=== PATIENT | female | born 1960 | race Hispanic/Latino ===

== ENCOUNTER 2018-06-19 21:13 | Inpatient (IN) | payer MEDICAID, OTHER ==
[2018-06-19 21:42] LABS: Basophils % (Auto) 0.6 % (0.0-1.8); Eosinophils # (Auto) 0.1 K/mm3 (0.0-0.4); Eosinophils % (Auto) 0.8 % (0.0-4.3); Hematocrit 38.8 % (30.3-42.9); Lymphocytes # (Auto) 1.2 K/mm3 (1.2-5.4); Lymphocytes % (Auto) 19.5 % (13.4-35.0); Mean Corpuscular HGB Conc 34 % (30-34); Mean Corpuscular Volume 93 fl (79-97); Monocytes # (Auto) 0.6 K/mm3 (0.0-0.8); Monocytes % (Auto) 9.3 % (0.0-7.3); Platelet Count 199 K/mm3 (140-440); Red Blood Count 4.19 M/mm3 (3.65-5.03); Red Cell Distribution Width 15.2 % (13.2-15.2)
--- NOTE | 2018-06-19 22:13 | Emergency Department Report ---
ED Altered Mental Status HPI - General Chief Complaint: Altered Mental Status Stated Complaint: SYNCOPE Time Seen by Provider: 06/19/18 21:50 Source: patient, EMS Mode of arrival: Stretcher Limitations: Altered Mental Status - History of Present Illness Initial Comments: Mrs. Gong is a 57-year-old female with history of anxiety, MDD, Crohn's di sease, gastroparesis, osteoporosis, COPD, GERD, recurrent UTI and seizure who presents with altered mental status for several weeks. According to patient she falls randomly. She is having trouble recognizing persons. She is able to give a full hx. explained that she has black out spells in addition to seizure. I personally spoke with Dr. Ramirez physician at [facility]. She informed me that she was going to send Ms. Gong via EMS to our ED. In addition to seizures, Mrs. Gong also has a history of chronic migraine headache. She takes Keppra and Depakote. She has had several seizures this week. According to Dr. Ramirez, family members were very upset insisting on stat EEG. Dr. Ramirez was unable to obtain a clear history from the patient due to commotion. Dr. Ramirez desired CT head, at the minimum, to rule out intracranial hemorrhage with history of altered mental status and seizures. Medications include Tramadol Golytely Zofran MiraLAX Amlodipine Ditropan Valproic acid Keppra Tylenol Chantix Wellbutrin Flexeril Benadryl Hydrochlorothiazide Hydroxyzine Levothyroxine Lisinopril Metformin Singulair Prednisone Complaint: altered mental status, confusion -: Gradual, week(s) (several) Severity: moderate Consistency of Symptoms: waxing and waning, getting worse Context: other (frequent falls and seizures) - Related Data Allergies Allergy/AdvReac Type Severity Reaction Status Date / Time No Known Allergies Allergy Unverified 06/19/18 21:19 ED Review of Systems ROS: Stated complaint: SYNCOPE Other details as noted in HPI Comment: All other systems reviewed and negative Constitutional: malaise Respiratory: denies: cough Cardiovascular: denies: chest pain ED Past Medical Hx - Past Medical History Previous Medical History?: Yes Hx Heart Attack/AMI: Yes Hx GERD: Yes Hx Renal Disease: Yes (Recurrent UTI, Renal Calculi) Hx Seizures: Yes Hx Psychiatric Treatment: Yes (Anxiety, Major Depressive Disorder) Hx COPD: Yes Additional medical history: Crohns disease, VIT D def., Atherosclerosis of Aorta, Gastroparesis, Peripheral Neuropathy, Osteoporosis, hyperoxaluria, Bilateral Glaucoma, Hypokalemia, Breats CA w/ radiation andchemo therapy (2014), Aspiartion pneumonia - Surgical History Past Surgical History?: Yes Hx Cholecystectomy: Yes Additional Surgical History: Right arm, Hysterectomy, Lumpectomy Right breast (2014), Jejunostomy, Gastrostomy - Social History Smoking Status: Never Smoker Substance Use Type: None ED Physical Exam - General Limitations: Altered Mental Status General appearance: alert, in no apparent distress - Head Head exam: Present: atraumatic, normocephalic - Eye Eye exam: Present: normal appearance - ENT ENT exam: Present: mucous membranes moist - Neck Neck exam: Present: normal inspection, full ROM. Absent: tenderness, meningismus - Respiratory Respiratory exam: Present: normal lung sounds bilaterally. Absent: respiratory distress, wheezes, rales, rhonchi - Cardiovascular Cardiovascular Exam: Present: regular rate, normal rhythm, normal heart sounds. Absent: systolic murmur, diastolic murmur, rubs, gallop - GI/Abdominal GI/Abdominal exam: Present: soft, normal bowel sounds. Absent: distended, tenderness, guarding, rebound - Extremities Exam Extremities exam: Present: normal inspection - Back Exam Back exam: Present: normal inspection - Neurological Exam Neurological exam: Present: alert, oriented X3 - Psychiatric Psychiatric exam: Present: normal affect, normal mood - Skin Skin exam: Present: warm, dry, intact, normal color. Absent: rash ED Course Vital Signs 06/19/18 06/19/18 21:13 21:28 Temperature 98.8 F 98.7 F Pulse Rate 85 87 Respiratory 12 12 Rate Blood Pressure 122/58 122/58 [Left] O2 Sat by Pulse 96 95 Oximetry - Lab Data Result diagrams: 06/19/18 21:35 06/19/18 21:35 Lab Results 06/19/18 06/19/18 06/19/18 Range/Units 21:35 21:35 21:35 WBC 6.2 (4.5-11.0) K/mm3 RBC 4.19 (3.65-5.03) M/mm3 Hgb 13.0 (10.1-14.3) gm/dl Hct 38.8 (30.3-42.9) % MCV 93 (79-97) fl MCH 31 (28-32) pg MCHC 34 (30-34) % RDW 15.2 (13.2-15.2) % Plt Count 199 (140-440) K/mm3 Lymph % (Auto) 19.5 (13.4-35.0) % [place] % (Auto) 9.3 H (0.0-7.3) % Eos % (Auto) 0.8 (0.0-4.3) % Baso % (Auto) 0.6 (0.0-1.8) % Lymph # 1.2 (1.2-5.4) K/mm3 [place] # 0.6 (0.0-0.8) K/mm3 Eos # 0.1 (0.0-0.4) K/mm3 Baso # 0.0 (0.0-0.1) K/mm3 Seg Neutrophils % 69.8 (40.0-70.0) % Seg Neutrophils # 4.3 (1.8-7.7) K/mm3 Sodium 144 (137-145) mmol/L Potassium 3.7 (3.6-5.0) mmol/L Chloride 101.7 (98-107) mmol/L Carbon Dioxide 31 H (22-30) mmol/L Anion Gap 15 mmol/L BUN 14 (7-17) mg/dL Creatinine 0.5 L (0.7-1.2) mg/dL Estimated GFR > 60 ml/min BUN/Creatinine Ratio 28 % Glucose 89 (65-100) mg/dL Calcium 8.5 (8.4-10.2) mg/dL Total Bilirubin 0.20 (0.1-1.2) mg/dL AST 31 (5-40) units/L ALT 14 (7-56) units/L Alkaline Phosphatase 99 (35-129) units/L Ammonia (25-60) umol/L Total Protein 7.2 (6.3-8.2) g/dL Albumin 3.4 L (3.9-5) g/dL Albumin/Globulin Ratio 0.9 % TSH 8.250 H (0.270-4.200) mlU/mL Valproic Acid (50-100) ug/mL Plasma/Serum Alcohol (0-0.07) % 06/19/18 06/19/18 06/19/18 Range/Units 21:35 22:55 22:55 WBC (4.5-11.0) K/mm3 RBC (3.65-5.03) M/mm3 Hgb (10.1-14.3) gm/dl Hct (30.3-42.9) % MCV (79-97) fl MCH (28-32) pg MCHC (30-34) % RDW (13.2-15.2) % Plt Count (140-440) K/mm3 Lymph % (Auto) (13.4-35.0) % [place] % (Auto) (0.0-7.3) % Eos % (Auto) (0.0-4.3) % Baso % (Auto) (0.0-1.8) % Lymph # (1.2-5.4) K/mm3 [place] # (0.0-0.8) K/mm3 Eos # (0.0-0.4) K/mm3 Baso # (0.0-0.1) K/mm3 Seg Neutrophils % (40.0-70.0) % Seg Neutrophils # (1.8-7.7) K/mm3 Sodium (137-145) mmol/L Potassium (3.6-5.0) mmol/L Chloride (98-107) mmol/L Carbon Dioxide (22-30) mmol/L Anion Gap mmol/L BUN (7-17) mg/dL Creatinine (0.7-1.2) mg/dL Estimated GFR ml/min BUN/Creatinine Ratio % Glucose (65-100) mg/dL Calcium (8.4-10.2) mg/dL Total Bilirubin (0.1-1.2) mg/dL AST (5-40) units/L ALT (7-56) units/L Alkaline Phosphatase (35-129) units/L Ammonia 44.0 (25-60) umol/L Total Protein (6.3-8.2) g/dL Albumin (3.9-5) g/dL Albumin/Globulin Ratio % TSH (0.270-4.200) mlU/mL Valproic Acid 84.4 (50-100) ug/mL Plasma/Serum Alcohol 0.05 (0-0.07) % - EKG Data -: EKG Interpreted by Ut EKG shows normal: sinus rhythm, axis, intervals, QRS complexes, ST-T waves Rate: normal - Medical Decision Making Mrs. Gong presents with altered mental status and confusion for 2 weeks. Suspect polypharmacy and recurrent seizures as cause. and son are unable to care for her at home. Ms. Gong was insightful and cooperative. She does not appear altered. I do suspect intermittent delirium due to medication. She does appear frail. Family members state that she is unable to walk without assistance. I spoke extensively with [place] physician Dr. Flanagan. He recommended admission to our facility for further evaluation. He did note that TSH was within normal limits just last year. Elevated TSH is a change from her baseline. Dr. Reyes accepted patient to hospitalist service telemetry Critical Care Time: Yes (40) Critical care attestation.: If time is entered above; I have spent that time in minutes in the direct care of this critically ill patient, excluding procedure time. 40 minutes of critical care time excluding procedures were used in the care of the patient. Patient required multiple assessments and interventions. Spoke extensively with family members. I reviewed the electronic medical record. I spoke with consultants involved in the care of the patient. ED Disposition Clinical Impression: Acute encephalopathy, Recurrent seizures, Elevated TSH Disposition: OP ADMIT IP TO THIS HOSP Is pt being admited?: Yes Does the pt Need Aspirin: No Condition: Stable
[2018-06-19 22:15] LABS: Alanine Aminotransferase 14 units/L (7-56); Albumin 3.4 g/dL (3.9-5); BUN/Creatinine Ratio 28; Blood Urea Nitrogen 14 mg/dL (7-17); Calcium 8.5 mg/dL (8.4-10.2); Hemolysis Index 10
--- NOTE | 2018-06-19 22:51 | Cat Scan Report ---
FINAL REPORT EXAM: CT HEAD/BRAIN WO CON HISTORY: altered mental status TECHNIQUE: Contiguous axial images of the head were obtained without the use of intravenous contrast . PRIORS: None. FINDINGS: The cerebral hemispheres are without focal lesions. There is no evidence of acute infarct or intracra nial hemorrhage. There is no mass lesion or mass effect. There are no abnormal extra-axial fluid col lections. The ventricles and sulci are prominent consistent with generalized loss of brain substance, greater than expected for age. There is deep white matter lucency consistent with a mild degree of c hronic microvascular ischemic disease. The visualized skull and orbits are unremarkable. There is mil d mucosal thickening in the left sphenoid sinus. IMPRESSION: 1. No evidence of acute infarct or intracranial hemorrhage. 2. White matter lucency consistent with a mild degree of chronic microvascular ischemic disease. 3. Generalized loss of brain substance, greater than expected for age.
[2018-06-19] MEDS ORDERED: KEPPRA PO ONE (23:40)
--- NOTE | 2018-06-20 01:38 | XRay Report ---
FINAL REPORT EXAM: XR CHEST 1V AP HISTORY: dyspnea TECHNIQUE: AP portable view of the chest. PRIORS: None. FINDINGS: The cardiomediastinal silhouette appears normal. The lungs are clear. The bones and soft tissues are unremarkable. IMPRESSION: No evidence of acute cardiopulmonary disease.
[2018-06-20] MEDS ORDERED: ZOFRAN IV PRN (05:16)
[2018-06-20] MEDS ORDERED: SODIUM CHLORIDE FLUSH SYRINGE 10 ML IV PRN (05:16)
--- NOTE | 2018-06-20 05:47 | History and Physical Report ---
History of Present Illness Date of examination: 06/20/18 Date of admission: 06/20/18 01:10 Chief complaint: Generalized weakness History of present illness: Pt is a 57 year old female with PMHx of seizure, crohn's disease, s/p pegtube placement, COPD, CHANEL, GERD who was brought to the ER by EMS for altered level of consciousness.Pt's was sent to the ER by her and son who are her caregiver at home, according to the nurse, pt has been remaining in bed for the pas 7 days, she uses a tube feeding and a Jtube for her nutrition. Pt was seen in room, she is alert and orientated x4, able to provide her medical history, she states that she has been feeling weak for a few days and had not been able to get out of bed. Pt also states that she has diagnosed with 3 broken back disc and had not been able to walk for at least 3 years. pt c/o back pain and weakne ss, reports photophobia, headache, back pain, inability to ambulates due to back pain, she denies any fever, denies nausea, denies vomiting, denies stomach pain, denies change in appetite. Pt is admitted for evaluation by physical therapy for mobility, nutrition consult will be requested for continuation of peg-tube feeding as per home. Past History Past Medical History: arthritis, hypertension, hypothyroidism, seizures Past Surgical History: bowel surgery Social history: lives with family, smoking Family history: no significant family history Medications and Allergies Allergies Allergy/AdvReac Type Severity Reaction Status Date / Time No Known Allergies Allergy Verified 06/20/18 05:34 Home Medications Medication Instructions Recorded Confirmed Last Taken Type Acetaminophen [Mapap] 500 mg PO DAILY PRN 06/20/18 06/20/18 Unknown History Bupropion HCl [Bupropion HCl Sr] 150 mg PO DAILY 06/20/18 06/20/18 Unknown History Cyclobenzaprine [Flexeril 10 MG 10 mg PO TID 06/20/18 06/20/18 Unknown History TAB] Levothyroxine [Synthroid] 100 mcg PO QAM 06/20/18 06/20/18 Unknown History Lisinopril [Zestril] 20 mg PO DAILY 06/20/18 06/20/18 Unknown History Montelukast [Singulair] 10 mg pe PO DAILY 06/20/18 06/20/18 Unknown History diphenhydrAMINE [Benadryl CAP] 25 mg PO Q6HR PRN 06/20/18 06/20/18 Unknown History hydrOXYzine HCl [Hydroxyzine HCl] 25 mg PO Q4HR PRN 06/20/18 06/20/18 Unknown History hydroCHLOROthiazide 12.5 mg PO DAILY 06/20/18 06/20/18 Unknown History [Hydrochlorothiazide] metFORMIN [Glucophage] 500 mg PO QDAY 06/20/18 06/20/18 Unknown History methylPREDNISolone [Medrol] 4 mg PO DAILY 06/20/18 06/20/18 Unknown History predniSONE [Deltasone] 20 mg PO BID 06/20/18 06/20/18 Unknown History Active Meds: Active Medications Acetaminophen (Tylenol) 650 mg PO Q4H PRN PRN Reason: Pain MILD(1-3)/Fever >100.5/ROQUE Docusate Sodium (Colace) 100 mg PO BID BOB Famotidine (Pepcid) 20 mg IV BID BOB Dextrose/Sodium Chloride (D5/0.45ns) 1,000 mls @ 75 mls/hr IV DIRECT BOB Ondansetron HCl (Zofran) 4 mg IV Q8H PRN PRN Reason: Nausea And Vomiting Sodium Chloride (Sodium Chloride Flush Syringe 10 Ml) 10 ml IV BID BOB Sodium Chloride (Sodium Chloride Flush Syringe 10 Ml) 10 ml IV PRN PRN PRN Reason: LINE FLUSH Review of Systems Breasts: normal Respiratory: sleep apnea Musculoskeletal: low back pain Neurological: weakness, headaches, migraines Psychiatric: anxiety, depression Exam - Constitutional Vitals: Temp Pulse Resp BP Pulse Ox 98.7 F 84 9 L 113/61 90 06/19/18 21:28 06/20/18 02:00 06/20/18 02:00 06/20/18 02:00 06/20/18 02:00 General appearance: Present: no acute distress - EENT Eyes: Present: EOM intact ENT: hearing intact - Neck Neck: Present: normal ROM - Respiratory Respiratory effort: normal Respiratory: bilateral: CTA - Cardiovascular Rhythm: regular - Extremities Extremities: no ischemia, No edema Peripheral Pulses: within normal limits - Abdominal General gastrointestinal: Present: soft, non-tender, non-distended Female genitourinary: Present: deferred - Rectal Rectal Exam: deferred - Integumentary Integumentary: Present: warm, dry - Musculoskeletal Musculoskeletal: strength equal bilaterally - Psychiatric Psychiatric: appropriate mood/affect, cooperative, depressed - Neurologic Neurologic: moves all extremities, other (unable to assess) Results - Labs CBC & Chem 7: 06/19/18 21:35 06/19/18 21:35 Labs: Laboratory Last Values WBC 6.2 K/mm3 (4.5-11.0) 06/19/18 21:35 RBC 4.19 M/mm3 (3.65-5.03) 06/19/18 21:35 Hgb 13.0 gm/dl (10.1-14.3) 06/19/18 21:35 Hct 38.8 % (30.3-42.9) 06/19/18 21:35 MCV 93 fl (79-97) 06/19/18 21:35 MCH 31 pg (28-32) 06/19/18 21:35 MCHC 34 % (30-34) 06/19/18 21:35 RDW 15.2 % (13.2-15.2) 06/19/18 21:35 Plt Count 199 K/mm3 (140-440) 06/19/18 21:35 Lymph % (Auto) 19.5 % (13.4-35.0) 06/19/18 21:35 [place] % (Auto) 9.3 % (0.0-7.3) H 06/19/18 21:35 Eos % (Auto) 0.8 % (0.0-4.3) 06/19/18 21:35 Baso % (Auto) 0.6 % (0.0-1.8) 06/19/18 21:35 Lymph # 1.2 K/mm3 (1.2-5.4) 06/19/18 21:35 [place] # 0.6 K/mm3 (0.0-0.8) 06/19/18 21:35 Eos # 0.1 K/mm3 (0.0-0.4) 06/19/18 21:35 Baso # 0.0 K/mm3 (0.0-0.1) 06/19/18 21:35 Seg Neutrophils % 69.8 % (40.0-70.0) 06/19/18 21:35 Seg Neutrophils # 4.3 K/mm3 (1.8-7.7) 06/19/18 21:35 Sodium 144 mmol/L (137-145) 06/19/18 21:35 Potassium 3.7 mmol/L (3.6-5.0) 06/19/18 21:35 Chloride 101.7 mmol/L (98-107) 06/19/18 21:35 Carbon Dioxide 31 mmol/L (22-30) H 06/19/18 21:35 Anion Gap 15 mmol/L 06/19/18 21:35 BUN 14 mg/dL (7-17) 06/19/18 21:35 Creatinine 0.5 mg/dL (0.7-1.2) L 06/19/18 21:35 Estimated GFR > 60 ml/min 06/19/18 21:35 BUN/Creatinine Ratio 28 % 06/19/18 21:35 Glucose 89 mg/dL (65-100) 06/19/18 21:35 Calcium 8.5 mg/dL (8.4-10.2) 06/19/18 21:35 Total Bilirubin 0.20 mg/dL (0.1-1.2) 06/19/18 21:35 AST 31 units/L (5-40) 06/19/18 21:35 ALT 14 units/L (7-56) 06/19/18 21:35 Alkaline Phosphatase 99 units/L (35-129) 06/19/18 21:35 Ammonia 44.0 umol/L (25-60) 06/19/18 22:55 Total Protein 7.2 g/dL (6.3-8.2) 06/19/18 21:35 Albumin 3.4 g/dL (3.9-5) L 06/19/18 21:35 Albumin/Globulin Ratio 0.9 % 06/19/18 21:35 TSH 8.250 mlU/mL (0.270-4.200) H 06/19/18 21:35 Valproic Acid 84.4 ug/mL (50-100) 06/19/18 22:55 Plasma/Serum Alcohol 0.05 % (0-0.07) 06/19/18 21:35 Assessment and Plan Assessment and plan: 1. Generalized weakness 2. Migraine headache with photophobia 3. Crohn's disease (s/p pegtube/Jtube) 4. COPD stable (cigarette smoking) 5. Chronic back pain 6. Osteoarthritis 7. Debilitating/gait instability 8. Depression/anxiety 9. GERD (On PPI) 10. CHANEL Plan: Pt is admitted for gait instability Consult PT to eval and treat Consult nutrition to eval for peg tube feeding Resume home meds Consult case management for DC to home of SNF DVT prophylaxis with lovenox Further plan per hospital course Advance Directives: Yes VTE prophylaxis?: Chemical
[2018-06-20] MEDS: D5/0.45NS 1,000 ML IV SCH ×2 (05:56→19:08)
[2018-06-20] MEDS ORDERED: SIMPLE SYRUP FEEDTUBE PRN ×2 (09:26)
[2018-06-20] MEDS ORDERED: SODIUM BICARBONATE FEEDTUBE PRN (09:26)
[2018-06-20] MEDS ORDERED: PANCREAZE DR 10,500 UNIT FEEDTUBE PRN (09:26)
[2018-06-20] MEDS: PEPCID IV SCH ×2 (10:12→21:42)
[2018-06-20] MEDS: COLACE PO SCH ×2 (10:13→21:43)
[2018-06-20] MEDS: SODIUM CHLORIDE FLUSH SYRINGE 10 ML IV SCH (10:14)
--- NOTE | 2018-06-20 16:05 | Event Note ---
Date: 06/20/18 Patient seen and examined, remains very elusive. DISCUSSED WITH Nursing staff, probably underlying Depression, will obtain psych consult.
[2018-06-20] MEDS: LOVENOX SUB-Q SCH (21:42)
[2018-06-21] MEDS: TYLENOL PO PRN ×3 (00:55→23:07)
[2018-06-21] MEDS ORDERED: PEPCID IV ONE (05:36)
[2018-06-21] MEDS: D5/0.45NS 1,000 ML IV SCH (05:48)
[2018-06-21] MEDS: COLACE PO SCH ×2 (11:09→23:07)
[2018-06-21] MEDS: PEPCID IV SCH ×2 (11:11→23:06)
[2018-06-21] MEDS: SODIUM CHLORIDE FLUSH SYRINGE 10 ML IV SCH ×3 (11:11→23:07)
[2018-06-21] MEDS ORDERED: BENADRYL PO PRN (11:29)
[2018-06-21] MEDS ORDERED: ATARAX PO PRN (11:29)
[2018-06-21] MEDS ORDERED: NON-FORMULARY (Bupropion Hcl [Bupropion Hcl Sr] 150 MG) PO SCH (11:30)
--- NOTE | 2018-06-21 13:25 | Progress Note ---
Subjective Date of service: 06/21/18 Interval history: brain atrophy and confusion notd p[atient is alert but severe memory loss no seizures are noted Objective - Vital Sign Vital Signs - 12hr 06/21/18 06/21/18 06/21/18 04:00 05:03 08:00 Temperature 98.2 F 98.5 F Pulse Rate 64 67 63 Respiratory 18 18 Rate Blood Pressure 152/80 Blood Pressure 139/73 [Left] O2 Sat by Pulse 95 Oximetry 06/21/18 06/21/18 11:25 11:28 Temperature 98.2 F 98.2 F Pulse Rate 84 Respiratory 18 Rate Blood Pressure Blood Pressure 142/85 [Left] O2 Sat by Pulse 94 Oximetry - Laboratory Findings CBC and BMP: 06/19/18 21:35 06/19/18 21:35 Abnormal Lab Findings: Abnormal Labs 06/19/18 06/19/18 06/19/18 21:35 21:35 21:35 [place] % (Auto) 9.3 H Carbon Dioxide 31 H Creatinine 0.5 L Albumin 3.4 L TSH 8.250 H
--- NOTE | 2018-06-21 16:44 | Progress Note ---
Assessment and Plan Assessment and plan: Pt is a 57 year old female with PMHx of seizure, crohn's disease, s/p pegtube placement, COPD, CHANEL, GERD who was brought to the ER by EMS for altered level of consciousness.Pt's was sent to the ER by her and son who are her caregiver at home, according to the nurse, pt has been remaining in bed for the pas 7 days, she uses a tube feeding and a Jtube for her nutrition. Pt was seen in room, she is alert and orientated x4, able to provide her medical history, she states that she has been feeling weak for a few days and had not been able to get out of bed. Pt also states that she has diagnosed with 3 broken back disc and had not been able to walk for at least 3 years. pt c/o back pain and we akness, reports photophobia, headache, back pain, inability to ambulates due to back pain, she denies any fever, denies nausea, denies vomiting, denies stomach pain, denies change in appetite. Patient with poor compression and severe memory loss it appears. No further confusion noted. ?depression. 1. Generalized weakness 2. Migraine headache with photophobia 3. Crohn's disease (s/p pegtube/Jtube) 4. COPD stable (cigarette smoking) 5. Chronic back pain 6. Osteoarthritis 7. Debilitating/gait instability 8. Depression/anxiety 9. GERD (On PPI) 10. CHANEL Plan: Continue supportive care and telemetry care Patient is non ambulatory per friend who is at bedside but states that she sometimes can help with transfer she has bolus feeding at home rather than continuous due to bloating, She will need follow up with her surgeon and GI doctors outpatient Check ECHO TODAY IF she remains stable, she can discharged and have outpatient Mental health eval Consult case management for DC to home of SNF DVT prophylaxis with lovenox Discharge in am History Interval history: Patient seen and examined today NO acute distress NOTED, Complained of chest pain and also abdominal bloating which family states is chronic. Hospitalist Physical - Physical exam Narrative exam: VITAL SIGNS: Reviewed. GENERAL: The patient appeared well nourished and normally developed. Vital sig ns as documented. HEAD: No signs of head trauma. EYES: Pupils are equal. Extraocular motions intact. EARS: Hearing grossly intact. MOUTH: Oropharynx is normal. NECK: No adenopathy, no JVD. CHEST: Chest with clear breath sounds bilaterally. No wheezes, rales, or rhonchi. CARDIAC: Regular rate and rhythm. S1 and S2, without murmurs, gallops, or rubs. VASCULAR: No Edema. Peripheral pulses normal and equal in all extremities. ABDOMEN: Soft, G-J tube without detectable tenderness. No sign of distention. No rebound or guarding, and no masses palpated. Bowel Sounds normal. MUSCULOSKELETAL: Good range of motion of all major joints. Extremities without clubbing, cyanosis or edema. NEUROLOGIC EXAM: Alert and oriented x 2. No focal sensory or strength deficits. Speech normal. Follows commands but slow compression. PSYCHIATRIC: Mood depressed. SKIN: No rash or lesions. - Constitutional Vitals: Temp Pulse Resp BP Pulse Ox 98.2 F 84 18 142/85 94 06/21/18 11:28 06/21/18 11:25 06/21/18 11:25 06/21/18 11:28 06/21/18 11:25 General appearance: Present: no acute distress Results - Labs CBC & Chem 7: 06/19/18 21:35 06/19/18 21:35 Labs: Laboratory Last Values WBC 6.2 K/mm3 (4.5-11.0) 06/19/18 21:35 RBC 4.19 M/mm3 (3.65-5.03) 06/19/18 21:35 Hgb 13.0 gm/dl (10.1-14.3) 06/19/18 21:35 Hct 38.8 % (30.3-42.9) 06/19/18 21:35 MCV 93 fl (79-97) 06/19/18 21:35 MCH 31 pg (28-32) 06/19/18 21:35 MCHC 34 % (30-34) 06/19/18 21:35 RDW 15.2 % (13.2-15.2) 06/19/18 21:35 Plt Count 199 K/mm3 (140-440) 06/19/18 21:35 Lymph % (Auto) 19.5 % (13.4-35.0) 06/19/18 21:35 [place] % (Auto) 9.3 % (0.0-7.3) H 06/19/18 21:35 Eos % (Auto) 0.8 % (0.0-4.3) 06/19/18 21:35 Baso % (Auto) 0.6 % (0.0-1.8) 06/19/18 21:35 Lymph # 1.2 K/mm3 (1.2-5.4) 06/19/18 21:35 [place] # 0.6 K/mm3 (0.0-0.8) 06/19/18 21:35 Eos # 0.1 K/mm3 (0.0-0.4) 06/19/18 21:35 Baso # 0.0 K/mm3 (0.0-0.1) 06/19/18 21:35 Seg Neutrophils % 69.8 % (40.0-70.0) 06/19/18 21:35 Seg Neutrophils # 4.3 K/mm3 (1.8-7.7) 06/19/18 21:35 Sodium 144 mmol/L (137-145) 06/19/18 21:35 Potassium 3.7 mmol/L (3.6-5.0) 06/19/18 21:35 Chloride 101.7 mmol/L (98-107) 06/19/18 21:35 Carbon Dioxide 31 mmol/L (22-30) H 06/19/18 21:35 Anion Gap 15 mmol/L 06/19/18 21:35 BUN 14 mg/dL (7-17) 06/19/18 21:35 Creatinine 0.5 mg/dL (0.7-1.2) L 06/19/18 21:35 Estimated GFR > 60 ml/min 06/19/18 21:35 BUN/Creatinine Ratio 28 % 06/19/18 21:35 Glucose 89 mg/dL (65-100) 06/19/18 21:35 POC Glucose 86 (70-105) 06/20/18 05:17 Calcium 8.5 mg/dL (8.4-10.2) 06/19/18 21:35 Total Bilirubin 0.20 mg/dL (0.1-1.2) 06/19/18 21:35 AST 31 units/L (5-40) 06/19/18 21:35 ALT 14 units/L (7-56) 06/19/18 21:35 Alkaline Phosphatase 99 units/L (35-129) 06/19/18 21:35 Ammonia 44.0 umol/L (25-60) 06/19/18 22:55 Total Protein 7.2 g/dL (6.3-8.2) 06/19/18 21:35 Albumin 3.4 g/dL (3.9-5) L 06/19/18 21:35 Albumin/Globulin Ratio 0.9 % 06/19/18 21:35 TSH 8.250 mlU/mL (0.270-4.200) H 06/19/18 21:35 Valproic Acid 84.4 ug/mL (50-100) 06/19/18 22:55 Plasma/Serum Alcohol 0.05 % (0-0.07) 06/19/18 21:35 Nutrition/Malnutrition Assess - Dietary Evaluation Nutrition/Malnutrition Findings: Nutrition Notes Start: 06/20/18 09:00 Freq: Status: Active Protocol: Document 06/20/18 11:15 KH (Rec: 06/20/18 11:57 [email or web address]) Co-Sign 06/20/18 11:15 RM Nutrition Notes Need for Assessment generated from: MD Order Initial or Follow up Assessment Current Diagnosis COPD Other Pertinent Diagnosis Chron's, gastroparesis, GERD, seizures, hx of heart attack, MDD, anxiety Current Diet Cardiac/consistent CHO Labs/Tests Reviewed Pertinent Medications Reviewed Height 5 ft 3 in Weight 72.575 kg [place] Body Weight (kg) 52.27 BMI 28.3 Weight Status Overweight Subjective/Other Information MD consult for writing/ managing TF. Per RN, pt and pt family were unable to give clear pt hx. Pt came with PEG and PEJ tubes. RN stated pt family said pt sips on liquids throughout the day and recieves TF via PEG tube from 10PM to 5AM every night. Burn Absent Trauma Absent #1 Nutrition Diagnosis Inadequate oral intake Etiology Chron's, gastroparesis As Evidenced by Signs and Symptoms PEG and PEJ tube placement Is patient on ventilator? No Is Patient Ambulatory and/or Out of Bed No [facility] 1382.546 Calculation Used for Recommendations [facility] Additional Notes Pro: 58-73 g/day (0.8-1 g/kg ABW) Fluid: 1 ml/kcal Nutrition Intervention Change Diet Order: TF Nutrition Support: Jevity 1.2 at 55 ml/hr with water flush of 90 ml q4h Kcal 1,584 Protein (gm) 73 Fluid (mL) 1,065 Goal #1 TF tolerance Goal #2 TF to meet at least 80% of energy and protein needs Anticipated Discharge Needs: Unknown at this time Follow-Up By: 06/24/18 Additional Comments F/u for new TF
[2018-06-21] MEDS: WELLBUTRIN SR PO SCH (16:55)
[2018-06-21] MEDS: FLEXERIL PO SCH ×2 (17:02→20:11)
[2018-06-21] MEDS ORDERED: SINGULAIR PO SCH (18:00)
[2018-06-21] MEDS: KEPPRA PO SCH (23:06)
[2018-06-21] MEDS: DELTASONE PO SCH (23:06)
[2018-06-21] MEDS: LOVENOX SUB-Q SCH (23:07)
[2018-06-21] MEDS: DepaKENE Liq FEEDTUBE SCH (23:12)
[2018-06-22] MEDS: D5/0.45NS 1,000 ML IV SCH (03:21)
[2018-06-22] MEDS ORDERED: SYNTHROID PO SCH (06:00)
[2018-06-22] MEDS: DepaKENE Liq FEEDTUBE SCH (09:31)
[2018-06-22] MEDS: KEPPRA PO SCH (09:31)
[2018-06-22] MEDS: WELLBUTRIN SR PO SCH (09:31)
[2018-06-22] MEDS: FLEXERIL PO SCH (09:31)
[2018-06-22] MEDS: DELTASONE PO SCH (09:32)
[2018-06-22] MEDS: TYLENOL PO PRN (09:32)
[2018-06-22] MEDS: PEPCID IV SCH (09:32)
[2018-06-22] MEDS: COLACE PO SCH (09:33)
[2018-06-22] MEDS: SODIUM CHLORIDE FLUSH SYRINGE 10 ML IV SCH (09:33)
[2018-06-22] MEDS ORDERED: ZESTRIL PO SCH (10:00)
[2018-06-22] MEDS ORDERED: NON-FORMULARY (Hydrochlorothiazide [Hydrochlorothiazide] 12.5 MG) PO SCH (10:00)
[2018-06-22] MEDS ORDERED: HCTZ PO SCH (10:00)
[2018-06-22 11:45] VITALS: BP 150/77
--- NOTE | 2018-06-22 11:51 | Discharge Summary ---
Providers - Providers Date of Admission: 06/20/18 01:10 Date of discharge: 06/22/18 Attending physician: NATAN HOPKINS 06/20/18 Consult to Case Management [CONS] Routine Services Needed at Discharge: Physical Therapy Notified:: case management 06/20/18 05:34 Physical Therapy Evaluation and Treat [CONS] Routine Comment: Reason For Exam: AMS, assess mobility 06/20/18 08:20 Consult to Dietitian/Nutrition [CONS] Routine Physician Instructions: Reason For Exam: PEG TUBE FEEDING Reason for Consult: Write/Manage Tube Feeding 06/20/18 10:51 Consult to Physician [CONS] Routine Comment: Consulting Provider: LEW URBANO Physician Instructions: Reason For Exam: AMS 06/20/18 11:15 Consult to Physician [CONS] Routine Comment: Consulting Provider: KATIE MATA Physician Instructions: Reason For Exam: depression-Major Primary care physician: FERNANDO HAGER Hospitalization Condition: Stable Pertinent studies: CT scan of the head remarkable only for brain atrophy. Hospital course: Patient 57-year-old history of seizure disorder Chrons disease COPD obstructive sleep apnea presented to ED with generalized weakness and memory loss. Workup during his hospital course was unremarkable. Electrolytes lab values unremarkable. CT scan brain unremarkable. Generalized weakness thought to be secondary to possible continued migraine headaches O health issues. Plan was to discharge patient home with mental health consult. Patient has had some anxiety levels of depression. Has been stable with her medications. Patient also mentions she would like to stop smoking nicotine patch. Chronic back pain and debility unchanged no fever. Disposition: - TO HOME OR SELFCARE - Discharge Diagnoses (1) Acute encephalopathy Status: Acute Comment: Resolved mental health consult upon discharge. (2) Elevated TSH Status: Acute (3) Recurrent seizures Status: Acute Comment: No evidence of recurrent seizure. Workup negative. Core Measure Documentation - Palliative Care Palliative Care/ Comfort Measures: Not Applicable - Core Measures Any of the following diagnoses?: none Exam - Constitutional Vitals: Temp Pulse Resp BP Pulse Ox 98.5 F 73 18 150/77 97 06/22/18 11:44 06/22/18 11:42 06/22/18 11:42 06/22/18 11:42 06/22/18 11:42 General appearance: Present: no acute distress, well-nourished. Absent: mild distress, cachectic, malodorous - EENT Eyes: Present: PERRL ENT: hearing intact, clear oral mucosa - Neck Neck: Present: supple, normal ROM - Respiratory Respiratory effort: normal Respiratory: bilateral: CTA - Cardiovascular Heart Sounds: Present: S1 & S2. Absent: rub, click - Extremities Extremities: pulses symmetrical, No edema Peripheral Pulses: within normal limits - Abdominal General gastrointestinal: Present: soft, other (PEG tube) - Integumentary Integumentary: Present: clear, warm, dry - Musculoskeletal Musculoskeletal: strength equal bilaterally, generalized weakness - Psychiatric Psychiatric: appropriate mood/affect, no intact judgment & insight, memory intact - Neurologic Neurologic: CNII-XII intact, moves all extremities Plan Activity: up only with assistance Weight Bearing Status: Touch Down Weight Bearing Diet: other (peg tube feedings) Follow up with: FERNANDO HAGER MD [Primary Care Provider] - 7 Days Prescriptions: buPROPion SR [Wellbutrin SR] 150 mg PO DAILY #30 tablet Cyclobenzaprine [Flexeril 10 MG TAB] 10 mg PO TID #30 tablet hydroCHLOROthiazide [Hydrochlorothiazide] 12.5 mg PO DAILY #30 tablet hydroCHLOROthiazide [HCTZ] 12.5 mg PO QDAY #30 capsule levETIRAcetam [Keppra ORAL LIQ] 500 mg PO BID #60 bottle Levothyroxine [Synthroid] 100 mcg PO QAM #30 tablet Lisinopril [Zestril] 20 mg PO DAILY #30 tablet predniSONE [Deltasone] 20 mg PO BID #30 tablet
--- NOTE | 2018-06-22 14:24 | Progress Note ---
Subjective Date of service: 06/22/18 Interval history: feel thst alcohol was contributing factor to falls and the seizures the valproic acid level is normal at present time would not change that dose stable for d/c see my comments about brain atrophy in my dictated consult note Objective - Vital Sign Vital Signs - 12hr 06/22/18 06/22/18 06/22/18 04:38 07:45 07:46 Temperature 98.1 F 98.5 F Pulse Rate 80 71 Respiratory 18 18 Rate Respiratory Rate [Right Abdomen] Blood Pressure 141/69 173/87 O2 Sat by Pulse 94 96 Oximetry 06/22/18 06/22/18 06/22/18 09:32 09:36 10:00 Temperature Pulse Rate 72 82 Respiratory 20 20 Rate Respiratory 20 Rate [Right Abdomen] Blood Pressure 166/78 O2 Sat by Pulse 99 Oximetry 06/22/18 06/22/18 11:42 11:44 Temperature 98.5 F Pulse Rate 73 Respiratory 18 Rate Respiratory Rate [Right Abdomen] Blood Pressure 150/77 O2 Sat by Pulse 97 Oximetry - Laboratory Findings CBC and BMP: 06/19/18 21:35 06/19/18 21:35 Abnormal Lab Findings: Abnormal Labs 06/19/18 06/19/18 06/19/18 21:35 21:35 21:35 [place] % (Auto) 9.3 H Carbon Dioxide 31 H Creatinine 0.5 L POC Glucose Albumin 3.4 L TSH 8.250 H 06/21/18 06/22/18 23:53 06:29 [place] % (Auto) Carbon Dioxide Creatinine POC Glucose 106 H 137 H Albumin TSH
--- NOTE | 2018-06-22 18:29 | Consultation ---
HISTORY OF PRESENT ILLNESS: This is a 57-year-old female that presented to [facility] on 06/19/2018. The patient presented to the hospital with acute onset of severe diarrhea, severe pain secondary to Crohn's disease, gastroparesis, prior history of GERD with history of seizure disorder, altered mental status for several weeks. When she presented to the hospital, she had history of falls. She had several blackout spells. Her [facility] doctor was informed that she was going to send the patient to the Emergency Department for evaluation of seizures. She also has chronic history of migraine headaches. The patient had a CT scan of the head, which was done, which failed to reveal any abnormalities. I did review the CT and there is marked amount of atrophy, particularly in bilateral temporal lobes, much more so than I would appreciate, tejeda white matter changes with paucity of the white matter. There is some suggestion that there was a subcortical infarct noted over the right frontal area based on the appearance of the CT, but in general is a marked widening of the sulcal pattern, marked widening of the gyri pattern and attenuation of white matter bilaterally, which may correlate with the patient's history of seizures. Subsequent to admission, the patient has not had any further seizure activity. I have reviewed over her laboratory and she has a white count of 9300. She has a creatinine of 0.5, carbon dioxide of 31, albumin 3.4. TSH level is elevated at 8.25. Her valproic acid level is 84.4. Blood alcohol level is 0.05. PHYSICAL EXAMINATION: Reveals the patient to be slightly tremulous. She is slightly off balance. She has mildly slurred speech. Cranial nerves otherwise intact. No drift to the extremities is noted. Blood pressure is 114/70, pulse rate 80, respirations 18. She is currently afebrile. No meningismus, no tremors, no asterixis, no focal motor weakness. IMPRESSION: I do not think this patient is currently having any seizure. She is stable for discharge. She has multiple tejeda white matter changes on the CT. I would recommend [place] in the future get an MRI scan of the brain given her degree of brain atrophy. Of note is the fact that she has been drinking. Her blood alcohol level was 0.05. She may have alcohol-induced encephalopathy and also alcohol-induced falls. TSH level is well elevated. She may have chronic hypothyroidism. This needed to be worked up as an outpatient basis. The valproic acid level is certainly normal. I would not change her dose of valproic acid at present time since 84 is certainly within the therapeutic range. I do not think she is having any tremors associated with this level of valproic acid anyway. This will be considered to be acceptable for seizure control, although clearly when someone is drinking, antiepileptic medications are often not effective in controlling seizure activity. PLAN: Discharge back to the care of the [place] doctor. I do not think she needs any further workup at the present time. Most of her issues are chronic. I suspect that what may have happened was that she simply was intoxicated and this was what was contributing to her falling. Outpatient counseling for use of alcohol should be initiated. This will be important as well as for control of her seizures. JOB# [id number] KAYLA/ZACHERY
== END 2018-06-22 15:15 | disposition home or self-care (01) | DRG 103 ==
LOC: ED 21:13 → 4A 06-20 01:10
PROVIDERS: ADMIT Internal Medicine; ATTEND Internal Medicine
DX: G43.909 Migraine, unspecified, not intractable, without status migrainosus (principal); G93.40 Encephalopathy, unspecified; K50.90 Crohn's disease, unspecified, without complications; G40.909 Epilepsy, unspecified, not intractable, without status epilepticus; R79.89 Other specified abnormal findings of blood chemistry; G47.33 Obstructive sleep apnea (adult) (pediatric); J44.9 Chronic obstructive pulmonary disease, unspecified; K21.9 Gastro-esophageal reflux disease without esophagitis; H53.149 Visual discomfort, unspecified; G89.29 Other chronic pain; M54.9 Dorsalgia, unspecified; M19.90 Unspecified osteoarthritis, unspecified site; F32.9 Major depressive disorder, single episode, unspecified; F41.9 Anxiety disorder, unspecified; R26.9 Unspecified abnormalities of gait and mobility; I10 Essential (primary) hypertension; E03.9 Hypothyroidism, unspecified; M81.0 Age-related osteoporosis without current pathological fracture; G62.9 Polyneuropathy, unspecified; Z93.1 Gastrostomy status; Z87.440 Personal history of urinary (tract) infections; I25.2 Old myocardial infarction; Z87.442 Personal history of urinary calculi; Z87.01 Personal history of pneumonia (recurrent); Z90.710 Acquired absence of both cervix and uterus
CPT/HCPCS: 36415; 70450; 71045; 80053; 80164; 80320; 82140; 82962; 84443; 85025; 93005; 93010; 93306; 94760; 99406; G0378; G0480; J1650; J7512